=== PATIENT | male | born 1995 | race American Indian/Alaskan Native ===

== ENCOUNTER 2019-04-04 09:33 | Emergency (ER) | payer SELFPAY ==
[2019-04-04 10:00] VITALS: BP 148/86
--- NOTE | 2019-04-04 11:41 | Ultrasound Report ---
SCROTAL ULTRASOUND WITH DOPPLER HISTORY: bilateral testicle pain COMPARISON: None. TECHNIQUE: Grayscale, color and spectral Doppler images were obtained of the scrotum. FINDINGS: RIGHT: Right testicle: No significant abnormality. No mass. Right testicular size: 4.1 x 1.8 x 3.0 cm. Right epididymis: A 1.3 cm cyst of the epididymal head. LEFT: Left testicle: No significant abnormality. No mass. Left testicular size: 4.0 x 1.8 x 2.4 cm. Left epididymis: A focal hypoechoic area in the left epididymis measures 9 x 3 x 7 mm. Additional findings: Small bilateral hydroceles. Bilateral varicoceles demonstrate filling with Valsa lva maneuver. IMPRESSION: 1. Normal testes. 2. A 1.3 cm right epididymal cyst. 3. Focal hypodensity in the left epididymis may represent epididymitis. 4. Bilateral varicoceles and small bilateral hydroceles. Signer Name: Miki Castanon MD Signed: 04/04/2019 11:36 AM Workstation Name: [id number]
--- NOTE | 2019-04-04 12:04 | Emergency Department Report ---
ED Male HPI - General Chief complaint: Urogenital-Male Stated complaint: LOW ABDOMINAL/TESTICAL PAIN Time Seen by Provider: 04/04/19 11:59 Source: patient Mode of arrival: Ambulatory Limitations: No Limitations - History of Present Illness Initial comments: 24-year-old -[place] male patient visits with complaints of intermittent lower abdominal pain and bilateral testicle pain x yesterday. He denies any penile discharge, dysuria, urinary frequency, penile lesions, or testicular swelling. He also denies any fever/chills/sweats. He rates his pain as a 5/10 in severity and states pain worsens with urination. MD Complaint: testicle pain - Related Data Previous Rx's Medication Instructions Recorded Last Taken Type Doxycycline Monohydrate 100 mg PO BID #20 capsule 04/04/19 Unknown Rx Allergies Allergy/AdvReac Type Severity Reaction Status Date / Time No Known Allergies Allergy Unverified 04/04/19 09:58 ED Review of Systems ROS: Stated complaint: LOW ABDOMINAL/TESTICAL PAIN Other details as noted in HPI Comment: All other systems reviewed and negative Genitourinary: as per HPI ED Past Medical Hx - Past Medical History Previous Medical History?: No - Surgical History Past Surgical History?: No - Social History Smoking Status: Never Smoker Substance Use Type: Marijuana - Medications Home Medications: Home Medications Medication Instructions Recorded Confirmed Last Taken Type Doxycycline Monohydrate 100 mg PO BID #20 capsule 04/04/19 Unknown Rx ED Physical Exam - General Limitations: No Limitations General appearance: alert, in no apparent distress - Head Head exam: Present: atraumatic, normocephalic - Eye Eye exam: Present: normal appearance. Absent: scleral icterus - Neck Neck exam: Present: normal inspection - Respiratory Respiratory exam: Present: normal lung sounds bilaterally. Absent: respiratory distress - Cardiovascular Cardiovascular Exam: Present: regular rate, normal rhythm. Absent: systolic murmur, diastolic murmur, rubs, gallop - GI/Abdominal GI/Abdominal exam: Present: soft, normal bowel sounds. Absent: distended, tenderness, guarding, rebound, rigid - Rectal Rectal exam: Present: deferred - Neurological Exam Neurological exam: Present: alert, oriented X3 - Psychiatric Psychiatric exam: Present: normal affect, normal mood - Skin Skin exam: Present: warm, dry, intact, normal color. Absent: rash ED Course Vital Signs 04/04/19 09:54 Temperature 98.3 F Pulse Rate 64 Respiratory 18 Rate Blood Pressure 148/86 O2 Sat by Pulse 100 Oximetry ED Medical Decision Making - Radiology Data Radiology results: report reviewed SCROTAL ULTRASOUND WITH DOPPLER HISTORY: bilateral testicle pain COMPARISON: None. TECHNIQUE: Grayscale, color and spectral Doppler images were obtained of the scrotum. FINDINGS: RIGHT: Right testicle: No significant abnormality. No mass. Right testicular size: 4.1 x 1.8 x 3.0 cm. Right epididymis: A 1.3 cm cyst of the epididymal head. LEFT: Left testicle: No significant abnormality. No mass. Left testicular size: 4.0 x 1.8 x 2.4 cm. Left epididymis: A focal hypoechoic area in the left epididymis measures 9 x 3 x 7 mm. Additional findings: Small bilateral hydroceles. Bilateral varicoceles demonstrate filling with Valsalva maneuver. IMPRESSION: 1. Normal testes. 2. A 1.3 cm right epididymal cyst. 3. Focal hypodensity in the left epididymis may represent epididymitis. 4. Bilateral varicoceles and small bilateral hydroceles. - Medical Decision Making 24-year-old -[place] male patient visits with complaints of intermittent lower abdominal pain and bilateral testicle pain x yesterday. UA shows 12 WBCs. Ultrasound shows left sided epididymitis. Vitals are normal. Patient is non toxic appearing. Patient is stable for discharge home and follow-up with primary care provider. Patient given Rocephin 250 mg and we will discharge home with doxycycline 100 mg 10 days. Strict return precautions in detail with patient who verbalizes understanding. Critical care attestation.: If time is entered above; I have spent that time in minutes in the direct care of this critically ill patient, excluding procedure time. ED Disposition Clinical Impression: Acute epididymitis Disposition: DC-01 TO HOME OR SELFCARE Is pt being admited?: No Condition: Stable Instructions: Epididymitis (ED) Prescriptions: Doxycycline Monohydrate 100 mg PO BID #20 capsule Referrals: LUDY TURNER MD [Primary Care Provider] - 3-5 Days Forms: STI Treatment and Prevention
[2019-04-04] MEDS ORDERED: LIDOCAINE-MPF (1%) 10 MG/1 ML VIAL 5 ML INFILTRATI ONE (12:05)
[2019-04-04 12:46] LABS: Bilirubin,Urine NEG (Negative); Blood,Urine NEG (Negative); Color,Urine Straw (Yellow); Protein,Urine <15 mg/dL mg/dL (Negative); Urobilinogen,Urine < 2.0 mg/dL (<2.0)
== END 2019-04-04 13:31 | disposition home or self-care (01) ==
LOC: ED 09:33
DX: N45.1 Epididymitis (principal); F12.10 Cannabis abuse, uncomplicated
CPT/HCPCS: 81001; 87086; 93975; 96372; 99284; J0696